=== PATIENT | male | born 1955 | race Caucasian/White ===

== ENCOUNTER 2016-07-30 08:36 | Emergency (ER) | payer OTHER | END 2016-07-30 11:45 | disposition home or self-care (01) | LOC: ER1 08:36 | PROVIDERS: Specialist/Technologist Athletic Trainer | DX: N13.2 Hydronephrosis with renal and ureteral calculous obstruction (principal); K76.89 Other specified diseases of liver; R31.9 Hematuria, unspecified; I25.2 Old myocardial infarction; I25.810 Atherosclerosis of coronary artery bypass graft(s) without angina pectoris; Z95.1 Presence of aortocoronary bypass graft; Z95.5 Presence of coronary angioplasty implant and graft; Z87.891 Personal history of nicotine dependence; Z88.8 Allergy status to other drugs, medicaments and biological substances | CPT/HCPCS: 36415; 80048; 81001; 99284 ==